=== PATIENT | male | born 1940 | race Caucasian/White ===

== ENCOUNTER → 2025-03-23 | Day surgery (SDC) | payer MEDICARE ==
[2025-03-22 12:36] LABS: MEAN PLATELET VOLUME 9.3 FL (7.4-10.4); RED CELL DISTRIBUTION WIDTH 14.5 % (11.5-14.5)
[2025-03-22 12:43] LABS: CREATININE 2.14 MG/DL (0.60-1.10); TOTAL CARBON DIOXIDE 26.8 MMOL/L (24-32); eGFR 30 ML/MIN
[2025-03-22 12:47] LABS: APTT 30 SECONDS (22-32); INR 1.3 INR
[~2025-03-23] VITALS: Ht 172.7 cm; Wt 89.8 kg
[~2025-03-23] MED LIST: APIX5TAB3 PO; DONE10TA44 PO; DOPamine 400mg/D5W 250ml 250 ML IV ONE; FOLI0.4T6 PO; GABA-530; IRBE150T34 PO; LEVO50TA8 PO; LIDOcaine 1% 30ml preserv. free vial ONE; MEMA10TA22 PO; NORT25CA PO; OMEP20CA16 PO; PRAV80TA75; VERA240T92 PO; amiodarone 150mg/dext, iso-os 100 ML IV ONE; amiodarone 50MG/ML inj IV ONE; amiodarone/D5 360MG/200ML BAG 200 ML IV ONE; calcium chloride 100 MG/1 ML inj IV ONE; ceFAZolin 2,000MG in D5W 50mL IV ONE; epiNEPHrine 0.1mg/ml 10ml syringe ONE; fentaNYL/PF 50MCG/1 ML 2ML syringe ONE; heparin 1,000 UNITS/NS 500ml 500 ML ONE; heparin 1,000unit/ml 10ml vial 10 ML ONE; iohexol 350 MG/ML 50ML vial IV ONE; metoprolol tartrate 1mg/ml inj IV ONE; midazolam 1 mg/ML 2ml injection ONE; normal saline 1000ml 1,000 ML IV PRN; phenylephrine 10mg/ml inj. ONE; sod chloride 0.9% 10ml flush syringe IV ONE
[2025-03-23 06:30] VITALS: BP 108/44; PULSE 43; RESP 18; TEMP 97.9; O2SAT 98
--- NOTE | 2025-03-23 06:44 | ELECTROCARDIOGRAPH REPORT ---
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 BROOK Mcmillan Measurements Intervals [place] Rate: 43 P: 0 CO: 0 QRS: -5 QRSD: 105 T: 31 QT: 544 QTc: 461 Interpretive Statements Junctional rhythm Anterior infarct, age indeterminate Electronically Signed On 03-23-2025 16:42:[address] BROOK Mcmillan Please click the below link to view image of tracing.
--- NOTE | 2025-03-23 13:55 | CARDIOLOGY REPORT ---
DATE OF SERVICE: 03/23/2025 DICTATING PHYSICIAN: BROOK Cornelius MD [employer] PACEMAKER PLACEMENT REPORT PRIMARY PHYSICIAN: Dr. Fowler SEWING MACHINE BOBBIN WINDER: BROOK Cornelius MD INDICATION: The patient is an 84-year-old male with history of hypertension, hyperlipidemia, sick sinus syndrome, chronic atrial fibrillation, and aortic stenosis. The patient also has moderate dementia. The patient has been having repeated episodes of dizziness and unsteadiness and presyncopal episodes he also has history of falls., related to bradycardia. EMS had to visit his house at the recent fall and his event monitor revealed heart rate as lower than 30 with some pauses. The patient's echocardiogram also showed moderate to severe aortic stenosis with a valve area of 0.8 cm with a peak and mean gradient of 48/30 mmHg. Patient because of his comorbidities and moderate dementia wanted Less invasive procedures. After discussing his bradycardia related issues and aortic stenosis, He prefered to proceed with pacemaker implantation 1st and then think about Aortic stenosis evaluation. In view of his atrial fibrillation And need for only ventricular pacing he preferred to proceed with leadless pacemaker implantation. After discussing risks, benefits, and alternative options, the patient and his have decided to proceed with the Micra placement and risks, benefits, alternative options discussed including procedure-related complications. PRE PROCEDURE DIAGNOSIS: Sick sinus syndrome with severe bradycardia with syncopal episode PROCEDURES DONE: * Fluoroscopy. * Ultrasound-guided right femoral venous access. * Micra leadless pacemaker implantation. * Electrical cardioversion and code blue requiring intubation and prolonged CPR. CPR was started at 11:05 and continued until 11:50 a.m. PROCEDURE: Procedure was carried out after adequate heparinization.. Under local anesthesia, right groin access was obtained under ultrasound guidance. A 7-Burkinan sheath was put in and 2 preclosures were placed at 10 and 2 o'clock and then an stiff Amplatzer wire was put in and then a dilator was used to dilate a good-sized entry site for the Micra sheath and the Micra sheath was put in. 35 mL blood was aspirated and 50 mL of heparinized normal saline was injected. IV heparin 4000 unit bolus was given and then the introducer and the Amplatzer were removed. The Micra delivery catheter was advanced to the right atrium and then with anti-clockwise rotation at 10 o'clock flexion was applied and gradually Introduced into the right ventricular cavity and slowly with a clockwise rotation and slow advancement of the catheter the septum was engaged. Patient had a systolic blood pressure in the 80s and 90s, about 500 cc normal saline was given. The position was confirmed with contrast injection and a Micra was implanted. The first site had a lower impedance at the higher threshold. The Micra was recaptured and again the procedure was repeated and it was implanted in a better location with a pacing threshold of 0.5 and impedance of 780. , the patient was still having a low blood pressure and was given IV dopamine increased to 15 mcg per minute and IV fluid was continued . However patient continued to deteriorate and became severely hypotensive with no pulse. At that time, a code blue was called and at that time, we were ready to do a tug test and cut the thread to get the delivery catheter out. At that time chest compressions were started and the patient was intubated by the ER physician/door fitter and IV epinephrine, bicarbonate and amiodarone were given. The patient also received Philippe-Synephrine. The patient's rhythm revealed patient to be in fine V-fib, initially and fine V-fib later. He was electrically cardioverted. Multiple doses of IV amiodarone and epinephrine were given. Patient had pulseless rhythm. After prolonged CPR, the patient was asystole with occasional pulseless electrical activity. It was decided to call off the code at 11:50 a.m. IMPRESSION: An 84-year-old male who underwent successful Micra implantation; however, probably because of his severe and electrolyte abnormalities, CKD and other comorbidities developed progressive hypotension, which did not respond to the IV fluids, and pressors. Subsequently he required CPR, intubation, and cardioversion despite Prolonged coordinated effort to resuscitate him were unsuccessful and the code was called off at 11:50 a.m. Multiple physicians including myself, Dr. Sanchez Mosley, Dr. Morgan Montano and Dr. Lipscomb and resident physicians were all involved in the code. Still, the patient could not be resuscitated. BROOK Cornelius MD TID: [id number] RECEIPT: [id number] /[facility]
--- NOTE | 2025-03-23 19:05 | CONSULTATION REPORT - RESIDENT ---
Consult Providers to CC Resident Creating Document: WESLY DUMONT REYNAMARGOTNIRMALA LANDA History of Present Illness Reason for Admit\Complaint: Cardiac arrest History of Present Illness Code beverley was called for an 84-year-old male while he was undergoing pacemaker placement. Allergies: Coded Allergies: No Known Allergies (Unverified , 03/23/25) Home Medications Home Medications Active Reported Folic Acid* (Folic Acid) 0.4 Mg Tablet 1 Tab PO DAILY Eliquis (Apixaban) 5 Mg Tablet 1 Tab PO BID Irbesartan 150 Mg Tablet 0.5 Tab PO DAILY Omeprazole 20 Mg Capsule.dr 1 Cap PO DAILY Gabapentin 100 Mg Capsule 1 Cap DAILY Levothyroxine Sodium 50 Mcg Tablet 1 Tab PO DAILY Nortriptyline HCl 25 Mg Capsule 1 Cap PO DAILY Aricept (Donepezil HCl) 10 Mg Tablet 1 Tab PO BID Pravastatin Sodium 80 Mg Tablet 1 Tab DAILY Memantine HCl 10 Mg Tablet 1 Tab PO BID Verapamil Er (Verapamil Hcl) 240 Mg Tablet.sa 1 Tab PO DAILY Exam Vitals: Vital Signs Date Time Temp Pulse Resp B/P (MAP) Pulse Ox O2 Delivery O2 Flow Rate FiO2 03/23/25 06:30 Room Air 03/23/25 06:30 97.9 43 18 108/44 (65) 98 Diagnostic Data Last Recorded Lab Results: 03/22/25 1218 03/22/25 1218 Diagnostic Data: Laboratory Tests Test 03/22/25 12:18 Prothrombin Time 12.7 SECONDS (9.0-12.0) H INR International Normalized Ratio 1.3 INR Activated Partial Thromboplast Time 30 SECONDS (22-32) Coagulation Comments Additional Plan 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 Cornelius. He has a history of sick sinus syndrome, AFib and severe aortic stenosis. He underwent the pacemaker implantation and was pacing well when his blood pressure started dropping. He was started on dopamine drip and was increased to 15 micrograms/minute. Eventually, the patient lost pulse and was severely hypotensive when the srinivasa beverley was called. Ultrasound showed no pericardial effusion. There was no complication in the chest or groin and it was not a procedure related cardiac arrest. CPR was started at around 11:08 a.m. Intensive care team intubated the patient and he underwent several rounds of CPR with multiple doses of epinephrine, bicarbonate and amiodarone infusion. The patient went into VFib and he received multiple cardioversions. Eventually, the patient went into asystole. After prolonged CPR, it was decided to call the code at 11:52 a.m. Please see code sheet for medication administration. Date of Service: Mar 23, 2025 Billing Provider: POLO ESPINAL MD, SOWMYA MANJARI, [facility] Mar 23, 2025 19:04
--- NOTE | 2025-03-23 19:10 | PROCEDURE NOTE- Residance ---
Procedure Note Providers to CC ~ Description An emergent intubation during code blue was conducted. Using a GlideScope and a size 4 endotracheal tube with stylet, the patient was intubated on the 1st at [facility]. The stylet was removed and cuff balloon was inflated. Appropriate endotracheal tube position was confirmed by direct visualization of vocal cord passage, fogging of the tube, CO2 colormetric indicator and symmetric breath sounds. Chest compressions were resumed immediately after the intubation. The entire procedure was done by Dr. Espinal, bookkeeping clerks supervisor Date of Service: Mar 23, 2025 Billing Provider: POLO ESPINAL MD, SOWMYA MANJARI, [facility] Mar 23, 2025 19:10
--- NOTE | 2025-03-24 19:15 | CARDIOLOGY REPORT ---
APPROVED REPORT EXAM: Limited 2D and color flow Echocardiogram with CODE IN PROGRESS. Patient Location: CARDI[facility] Heart Rate: 0 bpm Rhythm: CPR IN PROGRESS Indications EVALUATE LV FUNCTION EVALUATE PERICARDIAL EFFUSION LEADLESS PACER IMPLANT IN PROGRESS - POSSIBLE PERFORATION KNOWN SEVERE AORTIC STENOSIS Manager Machine: MD Chele Previous echo: 02/01/25 [facility] EF: 63%; nlLV; mRVE; sevBAE; VASHTI: 0.8; PKV: 3.48; GRAD: 48/ 30; Nathaly; mMR; trPI; trTR LEFT VENTRICLE Normal LV size .. Mild concentric hypertrophy. Echocardiogram done in the middle of code blue situation. LVEF < 10%. Multiple rounds of Epinepherine, Sodium Bicarbonate, Amiodarone, and defibrillation resulted in no appreciated change or improvement. Code attempt called at 1156, pt . RIGHT VENTRICLE RV is normal size with severely reduced function. Ventricle appears full. Leadless pacemaker appears still connected to the implant catheter. There appears to be small pericardial effusion. ATRIA Left atrium is moderately dilated. AORTIC VALVE Limited imaging of AV appears heavily calcified with significant stenosis demonstrated by reduced excursion and increased transvalvular and ascending aorta turbulance. PERICARDIUM Normal pericardium. Small effusion with RV anterior free wall , unclear whether it is new or old, No tamponade, no BP, no RA / RV collapse. Abdominal ascites. Pleural effusion evolves at loop 42, and continued to expand. Other Information Study Quality: Technically Difficult due to code in progress. Code called at 1156, pt . Conclusion Echocardiogram done in the middle of code blue situation. LVEF < 10%. Multiple rounds of Epinepherine, Sodium Bicarbonate, Amiodarone, and defibrillation resulted in no appreciated change or improvement. Code attempt called at 1156, pt . Normal LV size .. Mild concentric hypertrophy. Normal pericardium. Small effusion with RV anterior free wall clot No tamponade, no BP, no RA / RV collapse. RV is normal size with severely reduced function. Ventricle appears full. Leadless pacemaker appears still connected to the implant catheter. There appears to be small pericardial effusion no evidence of RV compression..
== END | disposition home or self-care (01) ==
LOC: SSTAY O 05:39
PROVIDERS: ATTEND Internal Medicine Cardiovascular Disease
DX: I48.19 Other persistent atrial fibrillation (principal); Z00.6 Encounter for examination for normal comparison and control in clinical research program; I25.2 Old myocardial infarction; I31.39 Other pericardial effusion (noninflammatory); J90 Pleural effusion, not elsewhere classified; I49.5 Sick sinus syndrome; R00.1 Bradycardia, unspecified; I11.9 Hypertensive heart disease without heart failure; E78.5 Hyperlipidemia, unspecified; E66.3 Overweight; G47.39 Other sleep apnea; Z79.01 Long term (current) use of anticoagulants; Z79.890 Hormone replacement therapy; Z79.899 Other long term (current) drug therapy; Z90.49 Acquired absence of other specified parts of digestive tract; Z90.89 Acquired absence of other organs; Z98.890 Other specified postprocedural states; Z68.30 Body mass index [BMI] 30.0-30.9, adult; E87.8 Other disorders of electrolyte and fluid balance, not elsewhere classified; I12.9 Hypertensive chronic kidney disease with stage 1 through stage 4 chronic kidney disease, or unspecified chronic kidney disease; N18.9 Chronic kidney disease, unspecified; I95.89 Other hypotension; I70.0 Atherosclerosis of aorta; F03.B0 Unspecified dementia, moderate, without behavioral disturbance, psychotic disturbance, mood disturbance, and anxiety; Z91.81 History of falling; R18.8 Other ascites
CPT/HCPCS: 33274; 36415; 80048; 85025; 85610; 85730; 92950; 93005; 93308; 99152; 99153; A6258; A6402; C1760; C1769; C1786; C1894; J0169; J0282; J1171; J1265; J1644; J2003; J2250; J2371; J3010; J3490; J7030; Q9967; A6449